=== PATIENT | male | born 1955 | race Caucasian/White ===

== ENCOUNTER → 2017-08-07 | Outpatient (CLI) | payer OTHER, BC ==
[~2017-08-07] MED LIST: GASTROGRAFIN SOLUTION 30ML (Q9963) As Ordered; ISOVUE-370 76% 100ML VIAL (Q9967) As Ordered
== END ==
LOC: M RAD 10:34
DX: C88.4 Extranodal marginal zone B-cell lymphoma of mucosa-associated lymphoid tissue [MALT-lymphoma] (principal); C61 Malignant neoplasm of prostate; I70.0 Atherosclerosis of aorta; I25.10 Atherosclerotic heart disease of native coronary artery without angina pectoris; K76.0 Fatty (change of) liver, not elsewhere classified; N28.1 Cyst of kidney, acquired; K42.9 Umbilical hernia without obstruction or gangrene; K40.90 Unilateral inguinal hernia, without obstruction or gangrene, not specified as recurrent
CPT/HCPCS: Q9963

== ENCOUNTER 2018-06-07 14:51 | Emergency (ER) | payer OTHER ==
[~2018-06-07] VITALS: Ht 180.3 cm; Wt 110.9 kg
[2018-06-07] MEDS ORDERED: RAMI1CAP26 (14:58)
[2018-06-07] MEDS ORDERED: ROSU5TAB4 PO (14:58)
[2018-06-07] MEDS ORDERED: PANT40TA3 (14:58)
[2018-06-07] MEDS ORDERED: KETOROLAC 30 MG/ML VIAL (J1885) IV ONE (15:15)
[2018-06-07] MEDS ORDERED: NS 1,000 ML IV ONE (15:15)
[2018-06-07] MEDS ORDERED: ONDANSETRON 4MG/2ML VIAL (J2405) IV ONE (15:15)
[2018-06-07 15:41] LABS: BASO % 0.3 % (0.0-1.0); EOS # 0.1 10^3/uL (0.0-0.50); EOS % 0.7 % (0.0-3.0); HEMATOCRIT 40.5 % (42.0-52.0); HEMOGLOBIN 14.2 g/dl (13.5-17.5); LYMPH # 1.4 10^3/uL (1.5-4.5); LYMPH % 10.2 % (24.0-44.0); MEAN CORPUSCULAR HEMOGLOBIN 28.8 pg (27.0-33.0); MEAN CORPUSCULAR HGB CONC 35.1 g/dl (32.0-36.5); MEAN CORPUSCULAR VOLUME 82.2 fl (80.0-96.0); MONO # 0.4 10^3/uL (0.0-0.8); MONO % 2.8 % (0.0-5.0); NEUTROPHILS # 11.9 10^3/uL (1.8-7.7); NEUTROPHILS % 85.6 % (36.0-66.0); PLATELET COUNT, AUTOMATED 240 10^3/uL (150-450); RED BLOOD COUNT 4.93 10^6/uL (4.30-6.10); WHITE BLOOD COUNT 13.9 10^3/uL (4.0-10.0)
[2018-06-07 16:08] LABS: BLOOD UREA NITROGEN 16 MG/DL (7-18); CREATININE FOR GFR 1.13 MG/DL (0.70-1.30); GLUCOSE, FASTING 277 MG/DL (70-100)
[2018-06-07 16:09] LABS: ALBUMIN 4.2 GM/DL (3.2-5.2); ALT/SGPT 53 U/L (12-78); AMYLASE 27 U/L (25-115); BILIRUBIN,DIRECT 0.2 MG/DL (0.0-0.2); BILIRUBIN,TOTAL 0.6 MG/DL (0.2-1.0); CARBON DIOXIDE LEVEL 27 MEQ/L (21-32); CHLORIDE LEVEL 101 MEQ/L (98-107); GLOMERULAR FILTRATION RATE > 60.0 (>49); LIPASE 75 U/L (73-393); POTASSIUM SERUM 4.2 MEQ/L (3.5-5.1); SODIUM LEVEL 137 MEQ/L (136-145)
[2018-06-07] MEDS ORDERED: MACR100C43 PO (16:38)
[2018-06-07 16:51] VITALS: BP 137/70
[2018-06-07 16:56] LABS: HEMOGLOBIN A1c 8.9 %
--- NOTE | 2018-06-08 07:06 | REP ---
CT ABDOMEN AND PELVIS WITHOUT CONTRAST: CT abdomen and pelvis was performed without oral or IV contrast. Sagittal and coronal reconstruction images are performed. In the visualized lung bases there is a tiny calcified granuloma in the right lung as well as in the left lung. There is linear scarring in the lingula. The liver demonstrates diffuse fatty infiltration. No gross gallbladder abnormality is seen. The spleen, adrenals, and pancreas are grossly unremarkable. There is a right renal cyst again noted. There is no hydroureteronephrosis and no evidence of renal, ureteral or bladder calculus. There is mild atherosclerotic calcification of the abdominal aorta without aneurysm. There is no adenopathy. There is no free air or free fluid. There is no bowel wall thickening. There is no evidence of appendicitis. There is a small hiatal hernia. There is a small umbilical hernia containing fat which may be slightly larger than on the prior study of 08/07/2017. There are small bilateral inguinal hernias containing fat. The urinary bladder is not well distended and not well evaluated. No pelvic mass is seen. There are degenerative changes of the spine. IMPRESSION: No renal or ureteral calculus and no hydroureteronephrosis. No appendicitis. No free air or free fluid. Small hiatal hernia. Small umbilical hernia containing fat. Small bilateral inguinal hernias containing fat. Diffuse fatty infiltration of the liver. Right renal cyst. Electronically Signed by Amandeep Osborne MD 06/08/2018 09:19 A
== END 2018-06-07 16:59 | disposition home or self-care (01) ==
LOC: M ED 14:51
DX: R73.9 Hyperglycemia, unspecified (principal); K40.90 Unilateral inguinal hernia, without obstruction or gangrene, not specified as recurrent; K42.9 Umbilical hernia without obstruction or gangrene; K44.9 Diaphragmatic hernia without obstruction or gangrene; K76.0 Fatty (change of) liver, not elsewhere classified; N28.1 Cyst of kidney, acquired; I10 Essential (primary) hypertension; E78.5 Hyperlipidemia, unspecified; Z85.72 Personal history of non-Hodgkin lymphomas; Z85.46 Personal history of malignant neoplasm of prostate; Z79.899 Other long term (current) drug therapy; Z88.0 Allergy status to penicillin
CPT/HCPCS: 74176; 80048; 80076; 81001; 82150; 83036; 83690; 85025; 87086; 96361; 96374; 96375; 99284; J1885; J2405

== ENCOUNTER 2018-06-09 09:12 | Emergency (ER) | payer OTHER ==
[~2018-06-09] VITALS: Ht 180.3 cm; Wt 109.0 kg
[~2018-06-09 09:12] MED LIST changes: -GASTROGRAFIN SOLUTION 30ML (Q9963) As Ordered; -ISOVUE-370 76% 100ML VIAL (Q9967) As Ordered; +MACR100C43 PO; +PANT40TA3; +RAMI1CAP26; +ROSU5TAB4 PO
[2018-06-09] MEDS ORDERED: ONDANSETRON 4MG/2ML VIAL (J2405) IV ONE ×2 (10:30→12:45)
[2018-06-09] MEDS ORDERED: NS 1,000 ML IV ONE (10:30)
[2018-06-09] MEDS ORDERED: cefTRIAXone SOD 1 GM in D5W MINI-BAG PLUS 50 ML IV ONE (10:30)
[2018-06-09] MEDS ORDERED: KETOROLAC 30 MG/ML VIAL (J1885) IV ONE (10:30)
[2018-06-09 11:00] LABS: BASO % 0.4 % (0.0-1.0); EOS # 0.1 10^3/uL (0.0-0.50); EOS % 0.8 % (0.0-3.0); HEMATOCRIT 43.2 % (42.0-52.0); HEMOGLOBIN 15.1 g/dl (13.5-17.5); LYMPH # 1.7 10^3/uL (1.5-4.5); LYMPH % 15.8 % (24.0-44.0); MEAN CORPUSCULAR HEMOGLOBIN 28.9 pg (27.0-33.0); MEAN CORPUSCULAR VOLUME 82.6 fl (80.0-96.0); MONO # 0.5 10^3/uL (0.0-0.8); MONO % 4.7 % (0.0-5.0); NEUTROPHILS # 8.5 10^3/uL (1.8-7.7); NEUTROPHILS % 77.9 % (36.0-66.0); PLATELET COUNT, AUTOMATED 254 10^3/uL (150-450); RED BLOOD COUNT 5.23 10^6/uL (4.30-6.10)
[2018-06-09 11:21] LABS: BLOOD UREA NITROGEN 15 MG/DL (7-18); CARBON DIOXIDE LEVEL 29 MEQ/L (21-32); CHLORIDE LEVEL 101 MEQ/L (98-107); CREATININE FOR GFR 1.11 MG/DL (0.70-1.30); GLOMERULAR FILTRATION RATE > 60.0 (>49); GLUCOSE, FASTING 250 MG/DL (70-100); POTASSIUM SERUM 4.5 MEQ/L (3.5-5.1); SODIUM LEVEL 137 MEQ/L (136-145)
[2018-06-09 11:22] LABS: ALBUMIN 4.7 GM/DL (3.2-5.2); ALT/SGPT 45 U/L (12-78); BILIRUBIN,TOTAL 0.7 MG/DL (0.2-1.0); CALCIUM LEVEL 9.5 MG/DL (8.8-10.2); LIPASE 75 U/L (73-393); TOTAL PROTEIN 7.5 GM/DL (6.4-8.2)
[2018-06-09 11:34] LABS: HEMOGLOBIN A1c 9.2 %
[2018-06-09] MEDS ORDERED: ZOFR4TAB16 PO (12:23)
[2018-06-09] MEDS ORDERED: ACET-716 PO ×2 (12:23→13:02)
[2018-06-09] MEDS ORDERED: NAPR-837 PO (12:23)
[2018-06-09] MEDS ORDERED: CIPR-249 PO (12:23)
--- NOTE | 2018-06-09 12:34 | REP ---
CT ABDOMEN AND PELVIS WITHOUT CONTRAST: CT of the abdomen and pelvis performed without oral or IV contrast. Sagittal and coronal reconstruction images are performed. Comparison is made with a prior study of 06/07/2018. Visualized lung bases demonstrate chronic changes, which are stable with no evidence of acute infiltrate. The liver demonstrates diffuse fatty infiltration. Gallbladder is grossly unremarkable. Spleen, adrenals, and pancreas are unremarkable. There is a right renal cyst again noted. There is no renal or ureteral calculus and no hydroureteronephrosis. There is no definite bladder calculus, bladder is collapsed and not optimally evaluated. There is mild atherosclerotic calcification of the abdominal aorta without aneurysm. There is no adenopathy. There is no free air or free fluid. Once again, there is an umbilical hernia containing fat as well as bilateral inguinal hernias containing fat. There is a small hiatal hernia. All of these findings are unchanged. There is no bowel wall thickening or inflammatory change. The appendix is normal. There is no pelvic mass. There are degenerative changes of the spine. IMPRESSION: Stable CT exam with no change since the prior study of 06/07/2018. No acute abnormalities are detected. Electronically Signed by Amandeep Osborne MD 06/10/2018 10:11 A
[2018-06-09] MEDS ORDERED: MORPHINE 4 MG/ML 1ML VIAL/SYRINGE (J2270) IV ONE (12:45)
[2018-06-09 13:20] VITALS: BP 168/77
== END 2018-06-09 13:21 | disposition home or self-care (01) ==
LOC: M ED 09:12
DX: R73.09 Other abnormal glucose (principal); R10.9 Unspecified abdominal pain; K42.9 Umbilical hernia without obstruction or gangrene; K40.90 Unilateral inguinal hernia, without obstruction or gangrene, not specified as recurrent; K44.9 Diaphragmatic hernia without obstruction or gangrene; Z88.0 Allergy status to penicillin; Z79.899 Other long term (current) drug therapy
CPT/HCPCS: 74176; 80053; 81001; 83036; 83690; 85025; 96361; 96365; 96375; 96376; 99284; J0696; J1885; J2270; J2405

== ENCOUNTER 2019-04-20 10:44 | Day surgery (SDC) | payer OTHER ==
--- NOTE | 2019-03-29 19:34 | CR ---
DATE OF CONSULTATION: 03/25/2019 PREOPERATIVE CONSULTATION FOR: Dr. Jairo Castillo for preoperative optimization for incisional hernia repair scheduled 04/20/[address] Castillo at [facility]. Dear Dr. Castillo, Thank you for asking me to see Mr. Nahum Wright in preoperative consultation. He is, as you know, a 63-year-old gentleman with a past medical history of MALT B-cell lymphoma, type 2 diabetes, hypertension, hyperlipidemia, obstructive sleep apnea (NIXON), presenting in usual state of health as outlined below. The patient denies any fevers or chills, chest pain or shortness of breath. Hernia has been intermittently after pressure. Patient has history of Castrejon's esophagitis, last esophagogastroduodenoscopy (EGD) 02/04/2019 with radiofrequency ablation. The patient denies any significant dyspepsia. He is compliant with his pantoprazole. Patient has type 2 diabetes, believes he is eating fewer carbohydrates (carbs). He is going to get back on track with diet and exercise after the holidays. Denies polyuria, polyphagia, polydipsia. The patient has hypertension, compliant with antihypertensive regimen. Denies chest pain, palpitations, syncope or presyncope. Patient has a history of prostate cancer. Follows with urology annually and is felt to be in remission. The patient reports he is active. He has been chopping wood without any cardiovascular concerns. The patient has NIXON and is compliant with bilevel positive airway pressure (BiPAP). REVIEW OF SYSTEMS: Otherwise negative for fevers or chills, chest pain or shortness breath, nausea, vomiting, change in bowels. PAST MEDICAL HISTORY: 1. 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 2. Remote gastric ulcer. 3. Obesity. 4. History of tobacco abuse, quit 1998. 5. Dyslipidemia. 6. Hypertension. 7. Type 2 diabetes. 8. History of acute renal failure after IV contrast. 9. NIXON. 10. Lung lymphadenopathy, felt to be benign. 11. Prostate cancer, status post robotic prostatectomy 05/25. 12. Fatty liver. 13. Tubular adenoma. Last colonoscopy 09/30. 14. Umbilical hernia per CT 2012. 15. Castrejon's esophagitis, last EGD with ablation January 2019, recommendation to repeat 6-8 weeks. 16. Rosacea. 17. Bilateral inguinal hernia per CT abdomen and pelvis 06/07/2018. 18. Left groin strain May 2018. PATIENT'S MEDICATIONS: He is on; - aspirin 325 mg daily - metformin 500 mg two by mouth twice a day - pantoprazole 40 mg twice a day - ramipril 10 mg daily - rosuvastatin 5 mg daily - Temovate cream as needed for rosacea ALLERGIES: Patient's drug allergies are to PENICILLIN with shortness of breath and swelling. 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 Former smoker, quit in 1990. Denies alcohol use. Three adult sons. FAMILY HISTORY: Father from melanoma at 64. Mother from Alzheimer's disease at 86. A brother had lung cancer at 54 and at 55. Another brother from Alzheimer's at 72. A sister from cancer at 46. Son has attention deficit disorder (ADD). Grandparents had heart disease in their older years. PHYSICAL EXAMINATION: No acute distress. Vital signs are weight 245 with a body mass index (BMI) of 35.4, oxygen saturation (O2 sat) after exertion is 97%, blood pressure 122/72 with a heart rate of 87. HEENT Exam: Head is normocephalic. Neck is supple. Pupils equal, reactive to light. Extraocular movements are intact. He does have mild rosacea changes. His neck is supple. No jugular venous distention (JVD), carotid bruits, cervical lymphadenopathy. Respiratory: Clear to auscultation, resonant to percussion. Cardiovascular: Regular rate and rhythm. No murmur, rub, gallop. Abdomen: Normoactive bowel sounds, obese, protuberant, 1-2 cm umbilical hernia, firm, nontender. Genitourinary (): Deferred. Extremities: No cyanosis, clubbing or edema. Neurologic: Alert and oriented. Cranial nerves: II-XII intact. LABORATORY DATA: CBC essentially normal with med profile showing a sugar of 149, normal GFR, slightly low magnesium at 1.6. Last A1c was 7.6 02/26/2019. Last liver panel 11/17/2018 was normal with a lipid panel showing total cholesterol 239, LDL 66, and a normal thyroid. Urinalysis with a urine microalbumin of 43. Last EKG 11/26/2018: Normal sinus rhythm, rate of 63, axis of -2, normal UT, QRS, QTc interval, normal R-wave progression, no atrial or ventricular hypertrophy. No pathologic Q-waves. Essentially normal EKG, unchanged from previous EKG 07/25/2016. IMPRESSION: Mr. Nahum Wright, 63-year-old gentleman with multiple cardiovascular risk factors, including hypertension, hyperlipidemia, type 2 diabetes, age, has no signs or symptoms indicative of cardiovascular ischemia despite maintaining a high level of activity, chopping wood. The patient is felt to be optimized and at low risk for cardiovascular complications from the proposed surgical intervention, which can be further minimized by the following. PROBLEMS: 1. Diabetes 2. Dietary advice re-enforced. Hold metformin morning of surgery, resume when back resuming normal diet. 2. Hyperlipidemia. Continue rosuvastatin perioperatively including the evening prior to surgery. Hold aspirin 5 days prior to surgical intervention. 3. Hypertension. Continue antihypertensive regimen perioperatively with ramipril the evening prior to surgery. 4. Castrejon's. Continue pantoprazole, including with a sip of water morning of surgery. 5. MALT lymphoma, in remission. Follows closely with Hematology/Oncology in [place] and has regular EGDs. 6. Prostate cancer ([place]). [place] to be in remission, follows with urology annually. 7. Obstructive sleep apnea. Encouraged to bring BiPAP with him to surgical intervention. 8. Rosacea. Continue topical therapies. 9. Hypomagnesemia. Will add low dose of magnesium. Continue dietary intervention, certainly not a contraindication to surgery but will recheck magnesium level 1-2 weeks and address if indicated. Thank you very much for this consultation. Please call with questions or concerns.
[~2019-04-20] VITALS: Ht 180.3 cm; Wt 110.1 kg
[~2019-04-20 10:44] MED LIST changes: +ACET-716 PO; +CHEL100T4 PO; +CIPR-249 PO; +KETOROLAC 60 MG/2 ML VIAL (J1885) As Ordered ONE; +LIDOCAINE 1% MDV 20ML VIAL SQ PRN; +LIDOCAINE 2% INJ 100 MG/5 ML SDV (FOR ANES.) As Ordered ONE; +LR 1,000 ML IV ONE; +LevoFLOXacin IV 500 MG in IV 1 EA IV ONE; +METF500T13 PO; +MIDAZOLAM INJ 2 MG/2 ML VIAL (J2250) As Ordered ONE; +NAPR-837 PO; +ONDANSETRON 4MG/2ML VIAL (J2405) As Ordered ONE; +PANT40TA3 PO; -RAMI1CAP26; +RAMI1CAP26 PO; +ROCURONIUM BROMIDE 50 MG/5 ML VIAL As Ordered ONE; -ROSU5TAB4 PO; +ROSU5TAB5 PO; +ZOFR4TAB16 PO; +dexameTHASONE 4 MG/ML 1ML VIAL (J1100) As Ordered ONE; +fentaNYL 250 MCG/5 ML INJECTION (J3010) As Ordered ONE; +propofoL 200 MG/20 ML VIAL As Ordered ONE
[2019-04-20] MEDS ORDERED: BUPIVACAINE HCL 0.25% 10 ML VIAL As Ordered ONE (11:21)
[2019-04-20] MEDS ORDERED: BUPIVACAINE LIPOSOME/PF 1.3% 20ML VIAL (13.3MG/ML)(EXPAREL)(C9290 PER1MG) As Ordered ONE (11:21)
[2019-04-20] MEDS ORDERED: LACRILUBE (AKWA TEARS) OPHTH OINT 3.5 GM As Ordered ONE (12:29)
[2019-04-20] MEDS ORDERED: ROCURONIUM BROMIDE 50 MG/5 ML VIAL As Ordered ONE (12:35)
[2019-04-20] MEDS: BUPIVACAINE/EPIN 0.25% 30 ML VIAL As Ordered ONE (12:36)
[2019-04-20] MEDS ORDERED: SUGAMMADEX SODIUM 500 MG/5 ML VIAL (BRIDION) As Ordered ONE (12:44)
--- NOTE | 2019-04-20 13:51 | RO ---
DATE OF PROCEDURE: 04/20/2019 PREOPERATIVE DIAGNOSIS: Incisional hernia. POSTOPERATIVE DIAGNOSIS: Incarcerated incisional hernia. PROCEDURE: Robotic-assisted laparoscopic repair of incarcerated incisional hernia with mesh. SURGEON: Dr. Jairo Castillo WAREHOUSE SHIFT SUPERVISOR: Avril Bennett (provided instrument exchange, trocar placement, abdominal wall closure and mesh placement). ANESTHESIA: General endotracheal anesthesia. ESTIMATED BLOOD LOSS: Minimal. DISPOSITION: The patient was taken to recovery room awake, alert and hemodynamically stable. BRIEF OPERATIVE SUMMARY: The patient was taken to the operating room and was given general anesthesia. After adequate anesthesia and preoperative antibiotics were given, the patient was prepped and draped in the usual sterile fashion. Next, a left upper quadrant 8 mm trocar site was infiltrated with local and skin blade was used to create the incision. Blunt dissection was carried down to fascia. Veress needle placed into the abdominal cavity and insufflated to 15 mm of pressure. Then, a dilating 8 mm trocar was placed. The epigastric and lateral trocars were placed under direct visualization. The falciform ligament was taken down with monopolar cut scissors. There was omentum which was incarcerated within the hernia sac which was taken down with electrocautery. Eventually, once this was reduced adequately, the fascial defect at the umbilicus was closed with #0 Stratafix in a running layer and a 12 cm round Parietex was sutured in with running #3-0 V-Loc suture. All trocars were removed under direct visualization. #4-0 Vicryl was used close all the incisions. Steri-Strips and a dry sterile dressing was applied. The patient was awakened, extubated and brought to the recovery room awake, alert and hemodynamically stable. Sponge and needle counts were correct times two.
[2019-04-20] MEDS ORDERED: HYDROMORPHONE HCL 0.5 MG/ 0.5 ML SYRINGE (J1170 PER 1) IV PRN (14:00)
[2019-04-20] MEDS ORDERED: LR 1,000 ML IV SCH ×2 (14:00)
[2019-04-20] MEDS ORDERED: PERCOCET 5MG/325MG TAB PO PRN (14:00)
[2019-04-20] MEDS ORDERED: ONDANSETRON 4MG/2ML VIAL (J2405) IV PRN (14:00)
[2019-04-20] MEDS ORDERED: PILL CUTTER 1 EACH XX ONE (14:27)
[2019-04-20] MEDS: oxyCODONE 5MG TAB PO PRN ×2 (14:30→15:02)
[2019-04-20] MEDS: fentaNYL 100 MCG/2 ML INJECTION (J3010) IV PRN ×4 (14:33→14:49)
[2019-04-20] MEDS ORDERED: METOCLOPRAMIDE INJ 10MG/2ML VIAL (J2765) As Ordered ONE (14:39)
[2019-04-20] MEDS ORDERED: METOCLOPRAMIDE INJ 10MG/2ML VIAL (J2765) IV ONE (15:00)
[2019-04-20 16:20] VITALS: BP 134/75
== END 2019-04-20 16:24 | disposition home or self-care (01) ==
LOC: M SDC 10:44
PROVIDERS: ATTEND Surgery
DX: K43.0 Incisional hernia with obstruction, without gangrene (principal); I10 Essential (primary) hypertension; E11.9 Type 2 diabetes mellitus without complications; E78.49 Other hyperlipidemia; G47.33 Obstructive sleep apnea (adult) (pediatric); E83.42 Hypomagnesemia; K21.9 Gastro-esophageal reflux disease without esophagitis; Z85.79 Personal history of other malignant neoplasms of lymphoid, hematopoietic and related tissues; K22.719 Barrett's esophagus with dysplasia, unspecified; K76.0 Fatty (change of) liver, not elsewhere classified; Z79.82 Long term (current) use of aspirin; Z79.84 Long term (current) use of oral hypoglycemic drugs; Z88.0 Allergy status to penicillin; Z79.899 Other long term (current) drug therapy
CPT/HCPCS: 49655; C1781; C9290; J1100; J1885; J1956; J2250; J2405; J2765; J3010

== ENCOUNTER 2020-12-08 14:20 | Emergency (ER) | payer OTHER ==
[~2020-12-08] VITALS: Ht 180.3 cm; Wt 104.0 kg
[~2020-12-08 14:20] MED LIST changes: -KETOROLAC 60 MG/2 ML VIAL (J1885) As Ordered ONE; -LIDOCAINE 1% MDV 20ML VIAL SQ PRN; -LIDOCAINE 2% INJ 100 MG/5 ML SDV (FOR ANES.) As Ordered ONE; -LR 1,000 ML IV ONE; -LevoFLOXacin IV 500 MG in IV 1 EA IV ONE; -MIDAZOLAM INJ 2 MG/2 ML VIAL (J2250) As Ordered ONE; -ONDANSETRON 4MG/2ML VIAL (J2405) As Ordered ONE; +PANT40TA29; +PANT40TA29 PO; -PANT40TA3; -PANT40TA3 PO; -ROCURONIUM BROMIDE 50 MG/5 ML VIAL As Ordered ONE; -dexameTHASONE 4 MG/ML 1ML VIAL (J1100) As Ordered ONE; -fentaNYL 250 MCG/5 ML INJECTION (J3010) As Ordered ONE; -propofoL 200 MG/20 ML VIAL As Ordered ONE
--- NOTE | 2020-12-08 14:56 | REP ---
INDICATION: TRAUMA COMPARISON: None. TECHNIQUE: Four views left wrist. FINDINGS: There is a comminuted intra-articular fracture of the distal radius with significant dorsal displacement and angulation. No other fracture or dislocation is seen. IMPRESSION: There is a comminuted intra-articular fracture of the distal radius with significant dorsal displacement and angulation. <Electronically signed by Amandeep Osborne > 12/08/20 [id number]
[2020-12-08] MEDS ORDERED: ONDANSETRON 4MG/2ML VIAL IV ONE ×2 (15:00→19:20)
[2020-12-08] MEDS ORDERED: MORPHINE 4 MG/ML 1ML VIAL/SYRINGE (J2270) IV ONE ×5 (15:00→19:35)
[2020-12-08 15:28] LABS: BASO # 0.1 10^3/uL (0.0-0.2); BASO % 0.8 % (0.0-1.0); EOS # 0.5 10^3/uL (0.0-0.5); EOS % 5.2 % (0.0-3.0); HEMATOCRIT 37.8 % (42.0-52.0); LYMPH # 2.9 10^3/uL (1.5-5.0); LYMPH % 27.9 % (24.0-44.0); MEAN CORPUSCULAR HGB CONC 34.4 g/dl (32.0-36.5); MEAN CORPUSCULAR VOLUME 84.4 fl (80.0-96.0); MONO # 0.6 10^3/uL (0.0-0.8); NEUTROPHILS # 6.1 10^3/uL (1.5-8.5); NEUTROPHILS % 59.7 % (36.0-66.0); PLATELET COUNT, AUTOMATED 295 10^3/uL (150-450); RED BLOOD COUNT 4.48 10^6/uL (4.30-6.10); WHITE BLOOD COUNT 10.2 10^3/uL (4.0-10.0)
--- NOTE | 2020-12-08 15:47 | REP ---
INDICATION: head injury; syncope. COMPARISON: None. TECHNIQUE: Helical scanning is acquired. 5 mm axial images were reformatted. Coronal MPR images were generated. FINDINGS: Bone window settings demonstrate an intact bony calvarium. There is no evidence of skull fracture or incidental bony calvarial lesion. The visualized paranasal sinuses appear clear. No intraorbital abnormality is seen. On soft tissue window setting images; the lateral, third, and fourth ventricles are normal in size and position. Osborne-white differentiation pattern is normal above and below the tentorium. There are is no evidence of intracranial hemorrhage. No mass, edema, infarction, or midline shift is seen. No extra-axial fluid collection is appreciated. IMPRESSION: Negative noncontrast head CT. <Electronically signed by Alex Cary > 12/08/20 [id number]
[2020-12-08 15:50] LABS: BLOOD UREA NITROGEN 28 MG/DL (7-18); CALCIUM LEVEL 9.9 MG/DL (8.8-10.2); CARBON DIOXIDE LEVEL 26 MEQ/L (21-32); CHLORIDE LEVEL 104 MEQ/L (98-107); CK-MB VALUE MASS 2.1 NG/ML (<3.6); CPK CREATINE PHOSPHOKINASE 210 U/L (39-308); CREATININE FOR GFR 1.67 MG/DL (0.70-1.30); GLOMERULAR FILTRATION RATE 44.3 (>49); GLUCOSE, FASTING 143 MG/DL (70-100); POTASSIUM SERUM 4.6 MEQ/L (3.5-5.1); SODIUM LEVEL 140 MEQ/L (136-145); TROPONIN I < 0.02 NG/ML (< 0.10)
[2020-12-08] MEDS ORDERED: NS 1,000 ML IV ONE (16:05)
--- NOTE | 2020-12-08 19:27 | ECGEPIP ---
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
[2020-12-08] MEDS ORDERED: METOCLOPRAMIDE INJ 10MG/2ML VIAL (J2765 PER 1) IV ONE (20:20)
[2020-12-08] MEDS ORDERED: LIDOCAINE 2% MDV 20ML VIAL SC ONE (22:55)
[2020-12-08] MEDS ORDERED: BUPIVACAINE HCL 0.5% 10ML VIAL SC ONE (22:55)
[2020-12-09] MEDS ORDERED: PERC5TAB12 PO (00:02)
[2020-12-09] MEDS ORDERED: OXYCODONE/APAP 5MG/325MG(BULK FOR ED) 1 TABLET PO ONE (00:05)
[2020-12-09 00:16] VITALS: BP 148/89
--- NOTE | 2020-12-09 00:25 | REPVR ---
PROCEDURE INFORMATION: Exam: CT Left Upper Extremity Without Contrast, Wrist Exam date and time: 12/08/2020 12:05 AM Age: 65 years old Clinical indication: Left wrist post reduction TECHNIQUE: Imaging protocol: CT of the Left upper extremity without contrast was performed. Exam focused on the wrist. 3D reconstructed images were created and reviewed. Radiation optimization: All CT scans at this facility use at least one of these dose optimization techniques: automated exposure control; mA and/or kV adjustment per patient size (includes targeted exams where dose is matched to clinical indication); or iterative reconstruction. COMPARISON: 1. XA Wrist, complete LEFT 12/08/2020 10:09 PM 2. CR Wrist, complete LEFT 12/08/2020 2:32:37 PM (The reports from these studies were not available for review at the time of this interpretation.) FINDINGS: Limitations: Motion artifact degrades the image quality. Bones/joints: There is an acute, comminuted, impacted, mildly displaced intra-articular fracture of the left distal radius in improved alignment compared to the left wrist x-rays on 12/08/2020 2:32:37 PM. The fracture line extends into the lunate fossa and sigmoid notch of the distal radius. There is an acute nondisplaced fracture involving the volar ulnar aspect of the lunate (image 51 of the axial series 201). Allowing for motion artifact, no other fractures identified in the left wrist. There is widening of the left scapholunate interval by 3 mm. There is neutral ulnar variance. There is [id number] osteoarthritis of the left 1st carpometacarpal joint. There is a small well corticated ossicle along the radial aspect of the left 1st carpometacarpal joint. Soft tissues: There is soft tissue swelling around the left wrist and left distal forearm. IMPRESSION: 1. Acute, comminuted, impacted, mildly displaced intra-articular fracture of the left distal radius in improved alignment compared to the left wrist x-rays on 12/08/2020 2:32:37 PM. 2. Acute nondisplaced fracture involving the volar ulnar aspect of the left lunate. 3. Widening of the left scapholunate interval by 3 mm, which may indicate an injury to the left scapholunate ligament. Electronically signed by: Brenton Mccormick On 12/09/2020 00:25:26 AM
--- NOTE | 2020-12-09 11:50 | ER ---
ER CONSULTATION DATE: 12/08/2020 TIME: 10 p.m. CONSULTING SERVICE: Orthopedic surgery. CONSULTING PHYSICIAN: Radu Esposito MD HISTORY OF PRESENT ILLNESS: This is a 65-year-old male who sustained a closed left distal radius fracture with intraarticular extension after falling off a stool while preparing his home for hunting season. The patient had pain and obvious deformity of the left wrist and presented to [facility]. Orthopedic surgery was consulted for further evaluation and treatment. MEDICAL HISTORY: Includes prediabetes, prostate cancer, lymphoma, stomach cancer. SURGICAL HISTORY: Includes hernia repair, prostate surgery. SOCIAL HISTORY: Nondrinker, nonsmoker, non IV drug user. ALLERGIES: PENICILLIN. MEDICATIONS: 1. Metformin. 2. PPI. REVIEW OF SYSTEMS: 14 point review of systems negative unless otherwise described in HPI above. PHYSICAL EXAMINATION: GENERAL: Alert and oriented to person, time and place. LEFT UPPER EXTREMITY: The patient had obvious deformity about the distal radius with dorsal deformity. He had tenderness to palpation about the distal radius, ecchymosis and obvious swelling. The patient had no breaks of the skin. He was otherwise neurovascularly intact in left upper extremity and 5/5 motor strength of musculature of the musculocutaneous, axillary, radial, median and ulnar distributions and sensation intact to light touch of the musculocutaneous, axillary, radial, median and ulnar nerve distributions. He had brisk capillary refill to the digits under 2 seconds. He had 2+ pulses radial and ulnar arteries. RADIOGRAPHS: Radiographs demonstrate dorsally displaced distal radius fracture, apex dorsal. This did appear to be intraarticular with minimally displaced intraarticular split. Postreduction CT scan demonstrates distal fracture that was well reduced with tenriism of volar tilt, radial height and radial inclination. He did, however, have a very minimal intraarticular split postreduction. PLAN: At this point in time the patient had near anatomic reduction with tenriism of radial height, radial inclination and volar tilt. He did have a very small minimally displaced intraarticular split. However, his articular surface otherwise looked congruent on the centralized views with reduced carpus. Given the fact that the patient vehemently does not want surgery I think he is a good candidate for fiberglass over wrap of his sugar-tong splint on 21 of December. The patient can follow up with Dr. Esposito in [facility] for fiberglass over wrap of his sugar-tong splint. The patient will receive radiographs in clinic and likely proceed with nonoperative management and casting of his left distal radius fracture.
--- NOTE | 2020-12-10 08:25 | REP ---
INDICATION: left wrist reduction. COMPARISON: None. TECHNIQUE: 79 seconds of fluoroscopy time was provided for closed reduction. 7 spot views were obtained using a C-arm device. FINDINGS: The previously described fracture dislocation has been reduced. The alignment is near anatomical in appearance on the limited images provided. IMPRESSION: As above <Electronically signed by Aime York > 12/10/20 [id number]
== END 2020-12-09 00:16 | disposition home or self-care (01) ==
LOC: M ED 14:20
DX: S52.592A Other fractures of lower end of left radius, initial encounter for closed fracture (principal); S00.81XA Abrasion of other part of head, initial encounter; W17.89XA Other fall from one level to another, initial encounter; Y92.018 Other place in single-family (private) house as the place of occurrence of the external cause; E11.9 Type 2 diabetes mellitus without complications; I10 Essential (primary) hypertension; E78.5 Hyperlipidemia, unspecified; Z79.899 Other long term (current) drug therapy; Z79.84 Long term (current) use of oral hypoglycemic drugs; Z85.89 Personal history of malignant neoplasm of other organs and systems; Z88.0 Allergy status to penicillin
CPT/HCPCS: 25605; 70450; 73110; 73200; 80048; 82550; 82553; 84484; 85025; 93005; 93041; 94760; 96361; 96374; 96375; 96376; 99285; J2270; J2405; J2765

== ENCOUNTER → 2020-12-12 | Outpatient (CLI) | payer OTHER ==
[~2020-12-12] MED LIST changes: +PERC5TAB12 PO
--- NOTE | 2020-12-12 13:35 | REP ---
INDICATION: LT WRIST FX. COMPARISON: 12/09/2019 TECHNIQUE: AP, lateral, oblique views of the left wrist FINDINGS: Comminuted fracture of the distal radius with callus formation and periosteal reaction noted. Further evaluation is limited by overlying cast material. IMPRESSION: Comminuted healing fracture of the distal radius. <Electronically signed by Hunter Noble > 12/12/20 [id number]
== END ==
LOC: M SOG 11:34
PROVIDERS: ATTEND Orthopaedic Surgery
DX: S52.532A Colles' fracture of left radius, initial encounter for closed fracture (principal)

== ENCOUNTER → 2020-12-19 | Outpatient (CLI) | payer OTHER ==
--- NOTE | 2020-12-19 09:39 | REP ---
INDICATION: LT RADIUS FX. COMPARISON: 12/08/2020 TECHNIQUE: AP, lateral, oblique views of the left wrist FINDINGS: Healing comminuted intra-articular fracture involving the distal radius is appreciated. Further evaluation is limited by overlying cast material. IMPRESSION: Healing comminuted intra-articular distal radial fracture. <Electronically signed by Hunter Noble > 12/19/20 0923
== END ==
LOC: M SOG 09:23
PROVIDERS: ATTEND Orthopaedic Surgery
DX: S52.592A Other fractures of lower end of left radius, initial encounter for closed fracture (principal)

== ENCOUNTER → 2021-01-02 | Outpatient (CLI) | payer OTHER ==
--- NOTE | 2021-01-02 16:48 | REP ---
INDICATION: LT WRIST FX. COMPARISON: 12/19/2020 TECHNIQUE: AP, lateral, oblique views of the left wrist FINDINGS: Overlying cast material limits evaluation. Healing comminuted transverse distal radial metaphyseal fracture noted with callus formation and early periosteal reaction. IMPRESSION: Healing distal radial fracture. <Electronically signed by Hunter Noble > 01/02/21 [id number]
== END ==
LOC: M SOG 09:18
PROVIDERS: ATTEND Orthopaedic Surgery
DX: S52.592D Other fractures of lower end of left radius, subsequent encounter for closed fracture with routine healing (principal)

== ENCOUNTER → 2021-01-16 | Outpatient (CLI) | payer OTHER ==
--- NOTE | 2021-01-16 12:55 | REP ---
INDICATION: LT WRIST FX. COMPARISON: 01/02/[address] TECHNIQUE: Four views FINDINGS: Previously described fractures are seen with callus formation consistent with healing. Dorsal angulation and dorsal displacement persists, however. IMPRESSION: As above. <Electronically signed by Aime York > 01/16/21 [id number]
== END ==
LOC: M SOG 08:42
PROVIDERS: ATTEND Orthopaedic Surgery
DX: S52.592D Other fractures of lower end of left radius, subsequent encounter for closed fracture with routine healing (principal)

== ENCOUNTER → 2023-04-11 | Outpatient (CLI) | payer MEDICARE, OTHER ==
[2023-04-11 09:30] LABS: CREATININE FOR GFR 1.36 MG/DL (0.70-1.30); GLOMERULAR FILTRATION RATE 55.6 (>49)
== END ==
LOC: M LAB 08:01
PROVIDERS: ATTEND Surgery
DX: R10.31 Right lower quadrant pain (principal); R10.32 Left lower quadrant pain; R59.9 Enlarged lymph nodes, unspecified

== ENCOUNTER → 2023-04-16 | Outpatient (CLI) | payer MEDICARE, OTHER ==
[~2023-04-16] MED LIST changes: +GASTROGRAFIN SOLUTION 30ML ONE
== END ==
LOC: M PLAIMG 11:09
PROVIDERS: ATTEND Surgery
DX: R10.31 Right lower quadrant pain (principal); R10.32 Left lower quadrant pain; R16.0 Hepatomegaly, not elsewhere classified; N28.1 Cyst of kidney, acquired
CPT/HCPCS: 74178; Q9963

== ENCOUNTER → 2023-07-15 | Outpatient (CLI) | payer MEDICARE, OTHER ==
[~2023-07-15] MED LIST changes: -GASTROGRAFIN SOLUTION 30ML ONE; +RAMI10CA64 PO; -RAMI1CAP26 PO; +ROSU5TAB40 PO; -ROSU5TAB5 PO
== END ==
LOC: M RAD 13:17
PROVIDERS: ATTEND Internal Medicine
DX: R19.09 Other intra-abdominal and pelvic swelling, mass and lump (principal); Z85.040 Personal history of malignant carcinoid tumor of rectum

== ENCOUNTER → 2023-10-28 | Outpatient (CLI) | payer MEDICARE, OTHER | LOC: M RAD 10:03 | PROVIDERS: ATTEND Internal Medicine | DX: K40.90 Unilateral inguinal hernia, without obstruction or gangrene, not specified as recurrent (principal); R59.0 Localized enlarged lymph nodes ==

== ENCOUNTER → 2024-05-17 | Outpatient (CLI) | payer MEDICARE, OTHER ==
[~2024-05-17] MED LIST changes: -ROSU5TAB40 PO; +ROSU5TAB49 PO
== END ==
LOC: M WUC 09:11
PROVIDERS: ATTEND Internal Medicine
DX: M25.551 Pain in right hip (principal)

== ENCOUNTER → 2024-06-02 | Outpatient (CLI) | payer MEDICARE, OTHER | LOC: M RAD 15:51 | PROVIDERS: ATTEND Internal Medicine | DX: I89.0 Lymphedema, not elsewhere classified (principal) ==

== ENCOUNTER → 2024-06-24 | Outpatient (CLI) | payer MEDICARE, OTHER | LOC: M PLARAD 15:00 | PROVIDERS: ATTEND Orthopaedic Surgery | DX: M25.551 Pain in right hip (principal) ==

== ENCOUNTER → 2024-09-22 | Outpatient (CLI) | payer MEDICARE, OTHER ==
[~2024-09-22] MED LIST changes: +CEFD1CAP9 PO; +RAMI5CAP60 PO; +TIRZ5PEN INJ
== END ==
LOC: M RAD 07:00
PROVIDERS: ATTEND Internal Medicine
DX: R10.9 Unspecified abdominal pain (principal)
CPT/HCPCS: 78227; A9537